=== PATIENT | male | born 2000 | race Two or more races ===

== ENCOUNTER 2025-04-04 13:14 | Emergency (ER) | payer MEDICAID, OTHER ==
[~2025-04-04] VITALS: Ht 157.5 cm; Wt 61.5 kg
--- NOTE | 2025-04-04 13:27 | ECG ---
[facility] Test Date: 2025-04-04 Test Time: 13:18:10 Pat Name: JULISSA COATS Department: ED Room: Gender: M Cattyman: REBEL : 2000 Requested By: ANA COHEN Order Number: [id number] Reading MD: Bernardino El Measurements Intervals [place] Rate: 125 P: 0 MA: 0 QRS: 92 QRSD: 89 T: 10 QT: 307 QTc: 443 Interpretive Statements Atrial fibrillation Borderline right axis deviation Minimal ST depression Electronically Signed On 04-07-2025 15:03:56 PDT by Bernardino El Please click the below link to view image of tracing.
--- NOTE | 2025-04-04 13:33 | ED.PDOC ---
HPI Comments 24 y/o M, with no prior cardiac history, presents to the ED for CC of chest pain. Patient states, he is coming from [facility] where he was relayed to the ED for a further evaluation regarding AFib. Patient reports, symptoms began last night (04/03/25) with chest pain being "tight" in nature accompanied by shortness of breath and palpitations. At this time patient denies any further symptoms or modifying factors. Chief Complaint: Chest Pain Time Seen by MD: 13:20 Reviewed Notes: Nurses Notes, Medications, Allergies Allergies: Coded Allergies: NO KNOWN ALLERGIES (Unverified , 04/04/25) Information Source: Patient Mode of Arrival: Ambulatory Severity: Moderate Duration: Since onset Prehospital treatment: None Location: Substernal Radiation: No Radiation Quality: Tightness Onset: At Rest Cardiac Risk Factors: None PE Risk Factors: None History of: None Modifying Factors: Nothing Associated Signs and Symptoms: SOB, Palpitations Past Medical History PAST MEDICAL HISTORY: Denies Surgical History: Denies all surgeries Family History Family History: Unknown Social History Smoker: Non-Smoker Alcohol: Occasionally Drugs: Denies Drug Use Lives In: Home Constitutional: denies: chills, diaphoresis, fatigue, fever, malaise, sweats, weakness, others EENTM: denies: blurred vision, double vision, ear bleeding, ear discharge, ear drainage, ear pain, ear ringing, eye pain, eye redness, hearing loss, mouth pain, mouth swelling, nasal discharge, nose bleeding, nose congestion, nose pain, photophobia, tearing, throat pain, throat swelling, voice changes, others Respiratory: reports: shortness of breath; denies: cough, hemoptysis, orthopnea, SOB at rest, SOB with excertion, stridor, wheezing, others Cardiovascular: reports: chest pain, palpitations; denies: dizzy spells, di aphoresis, Dyspnea on exertion, edema, irregular heart beat, left arm pain, lightheadedness, PND, syncope, others Gastrointestinal: denies: abdomen distended, abdominal pain, blood streaked bowels, constipated, diarrhea, dysphagia, difficulty swallowing, hematemesis, melena, nausea, poor appetite, poor fluid intake, rectal bleeding, rectal pain, vomiting, others Genitourinary: denies: burning, dysuria, flank pain, frequency, hematuria, incontinence, penile discharge, penile sore, pain, testicle pain, testicle swelling, urgency, others Neurological: denies: dizziness, fainting, headache, left sided numbness, left sided weakness, numbness, paresthesia, pre-existing deficit, right sided numbness, right sided weakness, seizure, speech problems, tingling, tremors, weakness, others Musculoskeletal: denies: back pain, gout, joint pain, joint swelling, muscle pain, muscle stiffness, neck pain, others Integumetry: denies: bruises, change in color, change in hair/nails, dryness, laceration, lesions, lumps, rash, wounds, others Allergic/Immunocompromised: denies: Difficulty Healing, Frequent Infections, Hives, Itching, others Hematologic/Lymphatic: denies: anemia, blood clots, easy bleeding, easy bruising, swollen glands, others Endocrine: denies: excessive hunger, excessive sweating, excessive thirst, excessive urination, flushing, intolerance to cold, intolerance to heat, unexplained weight gain, unexplained weight loss, others Psychiatric: denies: anxiety, bipolar disorder, depression, hopeless, panic disorder, schizophrenia, sleepless, suicidal, others All Other Systems: Reviewed and Negative Physical Exam General Appearance: Moderate Distress HEENT: Normal ENT Inspection, Pharynx Normal, TMs Normal Neck: Full Range of Motion, Non-Tender, Normal, Normal Inspection Respiratory: Chest Non-Tender, Lungs Clear, No Accessory Muscle Use, No Respiratory Distress, Normal Breath Sounds Cardiovascular: Irregular, No Edema, No JVD, No Murmur, No Gallop, Tachycardia Breast Exam: Deferred Gastrointestinal: No Organomegaly, Non Tender, No Pulsatile Mass, Normal Bowel Sounds, Soft Genitalia: Deferred Pelvic: Deferred Rectal: Deferred Extremities: No calf tenderness, Normal capillary refill, Normal inspection, Normal range of motion, Non-tender, No pedal edema Musculoskeletal : Apperance: Normal Neurologic: Alert, steamer tender II-XII nml as Tested, No Motor Deficits, Normal Affect, Normal Mood, No Sensory Deficits Cerebellar Function: Normal Reflexes: Normal Skin: Dry, Normal Color, Warm Lymphatic: No Adenopathy EKG EKG : Pulse Rate (adult): 125 [place]: Normal Cardiac Rhythm: Afib Block: None Hypertrophy: None ST: Normal Was a procedure done? Was a procedure done?: No CP Differential Dx Differential Diagnosis: A-fib, Pulmonary Embolus X-Ray, Labs, Meds, VS Vital Signs Date Time Temp Pulse Resp B/P (MAP) Pulse Ox O2 Delivery O2 Flow Rate FiO2 04/04/25 15:05 115 15 116/85 (95) 96 04/04/25 15:05 115 15 96 Room Air* 0 21 04/04/25 15:02 109 116/85 04/04/25 14:14 116 04/04/25 13:57 98.1 112 16 127/86 (100) 97 98.1 04/04/25 13:57 112 04/04/25 13:33 125 04/04/25 13:18 125 04/04/25 13:14 98.1 100 16 122/81 100 98.1 Lab Test 04/04/25 14:45 04/04/25 13:53 Range/Units Troponin I High Sensitivity 3 L < 3 L </=54 ng/L White Blood Count 5.3 4.4-10.8 10^3/uL Red Blood Count 5.83 4.5-5.90 10^6/uL Hemoglobin 17.5 13.5-17.5 g/dL Hematocrit 49.2 41.0-53.0 % Mean Corpuscular Volume 84.4 80.0-100.0 fL Mean Corpuscular Hemoglobin 30.1 28.0-32.0 pg Mean Corpuscular Hemoglobin Concent 35.6 32.0-36.0 g/dL Red Cell Distribution Width 13.4 11.8-14.3 % Platelet Count 290 140-450 10^3/uL Mean Platelet Volume 7.7 6.9-10.8 fL Neutrophils (%) (Auto) 66.6 37.0-80.0 % Lymphocytes (%) (Auto) 24.7 10.0-50.0 % Monocytes (%) (Auto) 7.6 0.0-12.0 % Eosinophils (%) (Auto) 0.7 0.0-7.0 % Basophils (%) (Auto) 0.4 0.0-2.0 % Neutrophils # (Auto) 3.5 1.6-8.6 10 ^3/uL Lymphocytes # (Auto) 1.3 0.4-5.4 10 ^3/uL Monocytes # (Auto) 0.4 0-1.3 10 ^3/uL Eosinophils # (Auto) 0 0-0.8 10 ^3/uL Basophils # (Auto) 0 0-0.2 10 ^3/uL Nucleated Red Blood Cells 0.4 % Sodium Level 141 136-145 mmol/L Potassium Level 3.9 3.5-5.1 mmol/L Chloride Level 104 98-107 mmol/L Carbon Dioxide Level 26 20-31 mmol/L Anion Gap 11 5-15 Blood Urea Nitrogen 11 9-23 mg/dL Creatinine 0.84 0.700-1.30 mg/dL Glomerular Filtration Rate Calc 123 >90 mL/min BUN/Creatinine Ratio 13.1 10.0-20.0 Serum Glucose 99 74-106 mg/dL Calcium Level 9.7 8.7-10.4 mg/dL Magnesium Level 2.2 1.6-2.6 mg/dL Current Medications Medications (Trade) Dose Ordered Sig/Tracey Route Start Time Stop Time Status Last Admin Aspirin 162 mg ONCE ONCE PO 04/04/25 13:30 04/04/25 13:31 DC 04/04/25 13:30 Metoprolol Tartrate (Lopressor) 5 mg ONCE ONCE IV 04/04/25 14:15 04/04/25 14:16 DC 04/04/25 15:02 CXR: IMPRESSION: No acute cardiopulmonary disease. IV Hep-Lock was established The patient was given aspirin 162 mg by mouth The patient was then given Lopressor 5 mg IV push The patient's CBC and chemistry panel are within normal limits The troponin level x2 is negative We did speak with [facility] and they have authorize the patient for transfer at this time The authorization #[id number] We are currently awaiting for them to call to transfer this patient. Images Reviewed?: Images reviewed and evaluated by me Time of 1ST Reevaluation: 13:50 Reevaluation 1ST: Unchanged Patient Education/Counseling: Diagnosis, Treatment, Prognosis Family Education/Counseling: No Family Present SEPSIS Sepsis Screen Physician Orders Chest Portable (04/04/25 13:25) Heplock Iv (04/04/25 13:25) [employer] (04/04/25 13:25) Blood Pressure (04/04/25 13:25) Pulse Oximetry (04/04/25 13:25) Urinalysis (04/04/25 13:25) Troponin-I Hs (04/04/25 16:25) Electrocardigram (04/04/25 14:25) Electrocardigram (04/04/25 16:25) Vital Signs Date Time Temp Pulse Resp B/P (MAP) Pulse Ox O2 Delivery O2 Flow Rate FiO2 04/04/25 15:05 115 15 116/85 (95) 96 04/04/25 15:05 115 15 96 Room Air* 0 21 04/04/25 15:02 109 116/85 04/04/25 14:14 116 04/04/25 13:57 98.1 112 16 127/86 (100) 97 98.1 04/04/25 13:57 112 04/04/25 13:33 125 04/04/25 13:18 125 04/04/25 13:14 98.1 100 16 122/81 100 98.1 Laboratory Tests Test 04/04/25 13:53 White Blood Count 5.3 10^3/uL (4.4-10.8) Medications Medications Dose Ordered Sig/Tracey Route Start Time Stop Time Status Last Admin Dose Admin Aspirin 162 mg ONCE ONCE PO 04/04/25 13:30 04/04/25 13:31 DC 04/04/25 13:30 Metoprolol Tartrate 5 mg ONCE ONCE IV 04/04/25 14:15 04/04/25 14:16 DC 04/04/25 15:02 Departure 1 Departure Time of Disposition: 15:48 Impression: Primary Impression: New onset atrial fibrillation Additional Impression: Atrial fibrillation with rapid ventricular response Disposition: 51 HOSPICE/MEDICAL FACILITY Condition: Fair Critical Care Note Critical Care Time?: No Stability Stability form required: No Heart Score Heart Score: Heart Score Response (Comments) Value History N/A 0 EKG N/A 0 Age N/A 0 Risk Factors N/A 0 Troponin N/A 0 Total 0 I personally scribed for ANA COHEN MD ([email or web address]) on 04/04/25 at 13:33. Electronically submitted by Jessica Romero ([email or web address]). I personally scribed for ANA COHEN MD ([email or web address]) on 04/04/25 at 13:38. Electronically submitted by Jessica Romero ([email or web address]). I personally scribed for ANA COHEN MD ([email or web address]) on 04/04/25 at 14:28. Electronically submitted by Jessica Romero ([email or web address]). ANA COHEN MD Apr 04, 2025 13:33
--- NOTE | 2025-04-04 13:58 | DVH ---
CHEST RADIOGRAPH Indication: weakness Technique: Single frontal view of the chest was obtained Comparison: None FINDINGS: Lines and Tubes: None Lungs: No focal consolidation. Pleura: No effusion. No pneumothorax. Cardiomediastinal contours: Unremarkable Bones: No acute osseous abnormality. IMPRESSION: No acute cardiopulmonary disease.
[2025-04-04 14:12] LABS: Hematocrit 49.2 % (41.0-53.0); Hemoglobin 17.5 g/dL (13.5-17.5); Mean Corpuscular Hemoglobin 30.1 pg (28.0-32.0); Mean Corpuscular Volume 84.4 fL (80.0-100.0); Nucleated Red Blood Cells % 0.4 %
[2025-04-04 14:17] LABS: Chloride 104 mmol/L (98-107); Potassium 3.9 mmol/L (3.5-5.1); Sodium 141 mmol/L (136-145)
[2025-04-04 14:18] LABS: Anion Gap 11 (5-15); Calcium 9.7 mg/dL (8.7-10.4); Carbon Dioxide 26 mmol/L (20-31)
[2025-04-04 14:23] LABS: BUN/Creatinine Ratio 13.1 (10.0-20.0); Blood Urea Nitrogen 11 mg/dL (9-23); Glucose 99 mg/dL (74-106)
[2025-04-04 14:24] LABS: Magnesium 2.2 mg/dL (1.6-2.6)
[2025-04-04] MEDS: METOPROLOL TARTRATE 1MG/1ML-5ML VIAL IV ONE (14:41)
[2025-04-04 15:05] VITALS: PULSE 115; RESP 15; O2SAT 96
[2025-04-04 16:30] VITALS: BP 117/53; PULSE 94; RESP 17; TEMP 98.2; O2SAT 98
== END 2025-04-04 17:04 | disposition short-term general hospital (02) ==
LOC: ER 13:14
DX: I48.20 Chronic atrial fibrillation, unspecified (principal); F10.90 Alcohol use, unspecified, uncomplicated; Y90.9 Presence of alcohol in blood, level not specified
CPT/HCPCS: 36415; 71045; 80048; 83735; 84484; 85025; 93005; 96374